=== PATIENT | female | born 1995 | race Caucasian/White ===

== ENCOUNTER 2021-06-19 03:58 | Inpatient (IN) | payer MEDICAID ==
[~2021-06-19] VITALS: Ht 134.6 cm; Wt 63.5 kg
[2021-06-19] MEDS ORDERED: pnv (04:34)
[2021-06-19] MEDS ORDERED: LACTATED RINGERS 1,000 ML IV SCH (09:00)
[2021-06-19] MEDS ORDERED: PENICILLIN G POTASSIUM 5 MMU in DEXT 5% WATER 100 ML IV NR (09:00)
[2021-06-19] MEDS ORDERED: DEXT 5%/LR + PITOCIN 20UNITS/L 1,000 ML IV SCH (09:00)
[2021-06-19] MEDS ORDERED: METHYLERGONOVINE MALEATE 0.2 MG/ML IM PRN (09:00)
[2021-06-19] MEDS ORDERED: LIDOCAINE HCL 1% 20ML VIAL (Pyxis) INJ INFIL SCH (09:00)
[2021-06-19] MEDS ORDERED: NALOXONE HCL 0.4 MG/ML 1ML VIAL IM PRN (09:00)
[2021-06-19] MEDS ORDERED: CARBOPROST TROMETHAMINE 250 MCG/ML AMPUL IM PRN (09:00)
[2021-06-19] MEDS: BUTORPHANOL TARTRATE 2 MG/ML VIAL IV PRN ×2 (09:10→11:48)
[2021-06-19] MEDS: LACTATED RINGERS 1,000 ML IV SCH ×2 (09:18→18:54)
[2021-06-19 10:02] LABS: HEMATOCRIT. 34.1 % (36.0-48.0); MEAN CORPUSCULAR HEMOGLOBIN 28.3 pg (28.0-32.0); MEAN CORPUSCULAR VOLUME 87.5 fL (81.0-99.0); MEAN PLATELET VOLUME 9.7 fl (7.4-10.4); PLATELET 201 x1000/uL (130-400); RED CELL DISTRIBUTION WIDTH 15.5 % (11.6-14.6)
[2021-06-19 10:25] LABS: INR 0.9; PARTIAL THROMBOPLASTIN TIME 22.3 sec (23.4-31.0); PROTHROMBIN TIME 9.5 sec (9.6-11.0)
[2021-06-19 13:02] LABS: CLARITY URINE CLEAR (CLEAR); COLOR URINE YELLOW (YELLOW); KETONES URINE NEGATIVE (NEGATIVE); LEUKOCYTE ESTERASE URINE TRACE (NEGATIVE); NITRITE URINE NEGATIVE (NEGATIVE); OCCULT BLOOD URINE 1+ (NEGATIVE); PROTEIN URINE NEGATIVE (NEGATIVE); SPECIFIC GRAVITY URINE 1.004 (1.005-1.030); UROBILINOGEN URINE 0.2 E.U./dL (0.2-1.0)
[2021-06-19 13:19] LABS: *BARBITURATES SCREEN URINE NEGATIVE (NEGATIVE); *BENZODIAZEPINES SCREEN URINE NEGATIVE (NEGATIVE); *COCAINE SCREEN URINE NEGATIVE (NEGATIVE)
[2021-06-19 13:20] LABS: *AMPHETAMINES SCREEN URINE NEGATIVE (NEGATIVE); CANNABINOID URINE SCREEN NEGATIVE (NEGATIVE); METHADONE URINE SCREEN NEGATIVE (NEGATIVE); OPIATES URINE SCREEN NEGATIVE (NEGATIVE); PHENCYCLIDINE URINE SCREEN NEGATIVE (NEGATIVE)
[2021-06-19 13:28] LABS: HEPATITIS B SURFACE ANTIGEN NEGATIVE
[2021-06-19] MEDS ORDERED: ROPIVACAINE HCL/PF EPIDURAL 200 ML EPI SCH (13:30)
[2021-06-19] MEDS: PENICILLIN G POTASSIUM 2.5 MMU in DEXTROSE 5% WATER 50 ML IV SCH ×3 (15:45→21:00)
[2021-06-19 15:55] LABS: PLATELET ESTIMATE NORMAL
[2021-06-19] MEDS ORDERED: TERBUTALINE SULFATE 1MG/ML VIAL SUBCUT NR (18:15)
[2021-06-19] MEDS ORDERED: ACETAMINOPHEN 650MG SUPP PR NR (18:30)
[2021-06-20] MEDS ORDERED: BISACODYL 10MG SUPP PR PRN (02:30)
[2021-06-20] MEDS ORDERED: LANOLIN OINT 7GM TUBE TOP PRN (02:30)
[2021-06-20] MEDS ORDERED: BENZOCAINE/LANOLIN/ALOE VERA SPRAY TOP PRN (02:30)
[2021-06-20] MEDS ORDERED: IBUPROFEN 400MG TABLET PO PRN (02:30)
[2021-06-20] MEDS ORDERED: GLYCERIN/WITCH HAZEL LEAF MEDICATED PAD TOP PRN (02:30)
[2021-06-20] MEDS ORDERED: ACETAMINOPHEN WITH CODEINE 300/30MG TABLET PO PRN (02:30)
[2021-06-20] MEDS ORDERED: DEXT 5%/LR + PITOCIN 20UNITS/L 1,000 ML IV SCH (02:30)
[2021-06-20] MEDS ORDERED: DIPHENHYDRAMINE 25MG CAPSULE PO PRN (02:30)
[2021-06-20] MEDS ORDERED: RHO(D) IMMUNE GLOBULIN 300 MCG/SYR IM PRN (02:30)
[2021-06-20 08:00] VITALS: BP 123/65
[2021-06-20 16:10] VITALS: BP 108/64
[2021-06-20 19:30] VITALS: BP 100/54
[2021-06-20] MEDS: MAGNESIUM/ALUMINUM HYDROXIDE/SIMETHICONE 30ML UDC PO SCH (21:00)
[2021-06-20] MEDS: SIMETHICONE 80MG TABLET CHEW PO SCH (21:00)
[2021-06-20] MEDS: DOCUSATE SODIUM 100MG CAPSULE PO SCH (21:38)
[2021-06-21 04:00] VITALS: BP 107/65
[2021-06-21 07:07] LABS: BASOPHILS % 0.5 % (0.0-2.0); EOSINOPHILS % 2.4 % (0.0-5.0); HEMOGLOBIN. 9.7 g/dL (12.0-16.0); LYMPHOCYTES % 13.7 % (20.0-50.0); MEAN CORPUSCULAR HEMOGLOBIN 29.2 pg (28.0-32.0); MEAN CORPUSCULAR VOLUME 87.2 fL (81.0-99.0); MEAN PLATELET VOLUME 9.5 fl (7.4-10.4); MONOCYTES % 4.7 % (2.0-8.0); NEUTROPHILS % 78.7 % (40.0-76.0); PLATELET 169 x1000/uL (130-400); RED BLOOD CELL COUNT 3.33 mill/uL (4.2-5.4); RED CELL DISTRIBUTION WIDTH 15.4 % (11.6-14.6)
[2021-06-21] MEDS: PRENATAL VIT/FE FUMARATE/FA TABLET PO SCH (07:30)
[2021-06-21] MEDS: FERROUS SULFATE 325MG TABLET PO SCH ×3 (07:30→18:03)
[2021-06-21] MEDS: SIMETHICONE 80MG TABLET CHEW PO SCH ×4 (07:31→21:02)
[2021-06-21] MEDS: MAGNESIUM/ALUMINUM HYDROXIDE/SIMETHICONE 30ML UDC PO SCH ×4 (07:31→21:02)
[2021-06-21 08:00] VITALS: BP 112/68
[2021-06-21 12:18] LABS: BASOPHILS % 0.4 % (0.0-2.0); EOSINOPHILS % 2.6 % (0.0-5.0); HEMOGLOBIN. 10.2 g/dL (12.0-16.0); MEAN PLATELET VOLUME 10.1 fl (7.4-10.4); MONOCYTES % 4.2 % (2.0-8.0); NEUTROPHILS % 79.8 % (40.0-76.0); PLATELET 198 x1000/uL (130-400); RED BLOOD CELL COUNT 3.64 mill/uL (4.2-5.4); RED CELL DISTRIBUTION WIDTH 15.5 % (11.6-14.6)
[2021-06-21 16:00] VITALS: BP 113/63
[2021-06-21 20:00] VITALS: BP 112/75
[2021-06-21] MEDS: IBUPROFEN 800MG TABLET PO PRN (21:02)
[2021-06-21] MEDS: DOCUSATE SODIUM 100MG CAPSULE PO SCH (21:02)
[2021-06-22 04:00] VITALS: BP 107/58
[2021-06-22] MEDS ORDERED: IBUP-2030 PO (06:36)
[2021-06-22] MEDS: PRENATAL VIT/FE FUMARATE/FA TABLET PO SCH (07:56)
[2021-06-22] MEDS: MAGNESIUM/ALUMINUM HYDROXIDE/SIMETHICONE 30ML UDC PO SCH (07:56)
[2021-06-22] MEDS: IBUPROFEN 800MG TABLET PO PRN (07:56)
[2021-06-22] MEDS: FERROUS SULFATE 325MG TABLET PO SCH (07:56)
[2021-06-22] MEDS: SIMETHICONE 80MG TABLET CHEW PO SCH (07:57)
[2021-06-22 08:00] VITALS: BP 124/68
== END 2021-06-22 11:50 | disposition home or self-care (01) | DRG 560 ==
LOC: 8 EST LDRP 03:58 → OBSVTOIN 03:58
PROVIDERS: ADMIT Obstetrics & Gynecology; ATTEND Obstetrics & Gynecology
PROC: 10D07Z6 Extraction of Products of Conception, Vacuum, Via Natural or Artificial Opening (ICD-10-PCS; principal; 2021-06-20)
PROC: 3E0R3BZ Introduction of Anesthetic Agent into Spinal Canal, Percutaneous Approach (ICD-10-PCS; 2021-06-20)
PROC: 00HU33Z Insertion of Infusion Device into Spinal Canal, Percutaneous Approach (ICD-10-PCS; 2021-06-20)
DX: O98.52 Other viral diseases complicating childbirth (principal); Z37.0 Single live birth; U07.1 COVID-19; O36.5930 Maternal care for other known or suspected poor fetal growth, third trimester, not applicable or unspecified; Z20.822 Contact with and (suspected) exposure to COVID-19; O69.81X0 Labor and delivery complicated by cord around neck, without compression, not applicable or unspecified; O77.0 Labor and delivery complicated by meconium in amniotic fluid; O70.1 Second degree perineal laceration during delivery; Z3A.41 41 weeks gestation of pregnancy; Z86.19 Personal history of other infectious and parasitic diseases
CPT/HCPCS: 36415; 76805; 76818; 80305; 81003; 85025; 86592; 86703; 86762; 86850; 86900; 87340; 87426; 99281; G0378; J0595; J2540; J2590; J3105; J3490; J7060; J7120